=== PATIENT | male | born 1995 | race Caucasian/White ===

== ENCOUNTER 2025-08-04 18:37 | Emergency (ER) | payer OTHER ==
[~2025-08-04] VITALS: Ht 175.3 cm; Wt 99.8 kg
[2025-08-04 19:42] LABS: PLATELET COUNT (AUTO) 318 K/uL (150-450); RED BLOOD CELL COUNT(AUTO) 6.01 MIL/uL (4.5-6.0); RED CELL DISTRIBUTION WIDTH 12.8 % (11.5-15.0); WHITE BLOOD COUNT (AUTO) 9.4 K/uL (4.3-11.0)
[2025-08-04 20:00] LABS: CALCIUM, SERUM 9.2 mg/dL (8.5-10.1); CREATININE 1.1 mg/dL (0.6-1.3); SODIUM SERUM 137 mmol/L (136-145); UREA NITROGEN, BLOOD 13 mg/dL (7-18)
[2025-08-04 20:09] LABS: ASPARTATE AMINOTRANSFERASE 15 U/L (15-37); TOTAL PROTEIN, SERUM 8.0 g/dL (6.4-8.2)
[2025-08-04] MEDS ORDERED: ESCI5TAB PO (21:49)
[2025-08-04] MEDS ORDERED: LORA-259 PO (21:49)
[2025-08-04 21:52] VITALS: BP 134/84; TEMP 98.3; O2SAT 98
== END 2025-08-04 21:53 | disposition home or self-care (01) ==
LOC: ER 18:47
DX: F41.9 Anxiety disorder, unspecified (principal); I10 Essential (primary) hypertension; Z02.89 Encounter for other administrative examinations
CPT/HCPCS: 36415; 80048-TC; 80076-TC; 83880; 84484-TC; 85025-TC